=== PATIENT | male | born 1970 | race Caucasian/White ===

== ENCOUNTER 2017-05-16 08:07 | Inpatient (IN) | payer SELFPAY ==
[2017-05-16] VITALS (12 sets, daily range): BP systolic 135–174; BP diastolic 85–109; Ht 182.9 cm; Wt 80.7 kg
[~2017-05-16] VITALS: Ht 182.9 cm; Wt 80.7 kg
--- NOTE | 2017-05-16 08:08 | ER Report ---
History and Physical Time Seen By MD: 08:07 HPI/ROS CHIEF COMPLAINT: Nausea vomiting diarrhea and shortness of breath HISTORY OF PRESENT ILLNESS: Patient with complaint of flulike symptoms including body aches chest pain and shortness of breath also associated nausea vomiting and diarrhea. The symptoms have been present for approximately 24 hours. Patient is a type II diabetic and has been off his medications for the past 3 weeks because he has not gotten refills for his prescriptions. Patient just moved to [place] within the last month. He has not established care with a primary care provider. No documented fevers at home. REVIEW OF SYSTEMS: Constitutional: No fever, no chills. Eyes: No discharge. ENT: No sore throat. Cardiovascular: Chest pain Respiratory: Shortness of breath without cough Gastrointestinal: Diffuse abdominal pain associated with nausea vomiting and diarrhea. Genitourinary: No hematuria. Musculoskeletal: No back pain. Skin: No rashes. Neurological: Generalized headache Allergies: Coded Allergies: codeine (Verified Allergy, Unknown, 05/16/17) Home Meds Reported Medications Escitalopram Oxalate (ESCITALOPRAM OXALATE) 10 Mg Tablet, 15 MG PO QDAY, TAB 05/16/17 Clonazepam (CLONAZEPAM) 1 Mg Tablet, 1 MG PO PRN, #6 TAB 05/16/17 Amphet Asp/Amphet/D-Amphet (ADDERALL 20 MG TABLET) 20 Mg Tablet, 20 MG PO TID 05/16/17 Lisinopril (LISINOPRIL) 10 Mg Tablet, 10 MG PO QDAY, TAB 05/16/17 Past Medical/Surgical History Past medical history for type II diabetes. Constitutional Vital Sign - Last 24 Hours 05/16/17 08:10 Temp 97.8 Pulse 101 Resp 34 B/P (MAP) 193/124 Pulse Ox 97 O2 Delivery Room Air Intake and Output 05/16/17 05/16/17 05/17/17 15:00 23:00 07:00 Intake Total 1000 ml Balance 1000 ml Physical Exam General/Constitutional: Patient is awake, alert, a patient with rapid deep breathing; appears ill Head: Normocephalic and atraumatic. Eyes: Conjunctival clear, Pupils are equal and reactive to light. Extraocular muscles are intact and symmetrical. Sclera are clear and anicteric. Ears:External canals are clear. Tympanic membranes are clear with normal landmarks and light reflex. Nares: No rhinorrhea or bleeding. Turbinates are pink and moist. Oropharyngeal: Mucous membranes are dry. There is no pharyngeal erythema or exudate. There are no palatal petechiae. Uvula is midline and symmetrical. Neck: Supple, no adenopathy. Cardiovascular: Heart is regular rate and rhythm without audible murmurs, rubs or gallops. Pulmonary: Lungs are clear to auscultation bilaterally. There are no wheezes, rales, or rhonchi. Chest rise is symmetrical Abdomen: Diffuse abdominal pain without guarding or rebound tenderness Extremities: No gross deformities, No peripheral cyanosis. Able to move all 4 extremities. Neuro: Alert and oriented X3, Skin: No rashes, skin is warm dry and well perfused. Medical Decision Making Data Points Result Diagram: 05/16/17 0825 05/16/17 0825 Laboratory Hematology Test 05/16/17 08:25 05/16/17 09:15 05/16/17 09:46 05/16/17 10:28 Red Blood Count 4.87 M/uL (4.00-5.60) Mean Corpuscular Volume 101.3 fL (80.0-96.0) Mean Corpuscular Hemoglobin 33.1 pg (26.0-33.0) Mean Corpuscular Hemoglobin Concent 32.7 g/dL (32.0-36.0) Red Cell Distribution Width 14.7 % (11.5-14.5) Mean Platelet Volume 8.7 fL (7.2-11.1) Neutrophils (%) (Auto) 83.8 % (39.4-72.5) Lymphocytes (%) (Auto) 9.7 % (17.6-49.6) Monocytes (%) (Auto) 5.1 % (4.1-12.4) Eosinophils (%) (Auto) 0.0 % (0.4-6.7) Basophils (%) (Auto) 1.4 % (0.3-1.4) Nucleated RBC Relative Count (auto) 0.1 /100WBC Neutrophils # (Auto) 14.4 K/uL (2.0-7.4) Lymphocytes # (Auto) 1.7 K/uL (1.3-3.6) Monocytes # (Auto) 0.9 K/uL (0.3-1.0) Eosinophils # (Auto) 0.0 K/uL (0.0-0.5) Basophils # (Auto) 0.2 K/uL (0.0-0.1) Nucleated RBC Absolute Count (auto) 0.01 K/uL Peripheral Blood Smear Yes Y/N Blood Gas Patient Temperature 98.6 DEGREES Venous Blood pH 6.82 (7.31-7.41) Venous Blood Partial Pressure CO2 28 mmHg Venous Blood Partial Pressure O2 51 mmHg Venous Blood HCO3 5 mmol/L Venous Blood Oxygen Saturation 54 % Venous Blood Base Excess -30 mmol/L Oxygen Liters/Minute N/a Sodium Level 130 mmol/L (137-145) Potassium Level 4.8 mmol/L (3.5-5.0) Chloride Level 90 mmol/L (98-107) Carbon Dioxide Level < 5 mmol/L (22-30) Blood Urea Nitrogen 13 mg/dl (9-21) Creatinine 1.50 mg/dl (0.66-1.25) Glomerular Filtration Rate Calc 50.4 Random Glucose 455 mg/dl (75-110) Calcium Level 9.2 mg/dl (8.4-10.2) Total Bilirubin 0.7 mg/dl (0.2-1.3) Aspartate Amino Transf (AST/SGOT) 192 U/L (0-35) Alanine Aminotransferase (ALT/SGPT) 451 U/L (0-56) Alkaline Phosphatase 483 U/L (0-126) Troponin I 0.033 ng/ml Total Protein 9.3 gm/dl (6.3-8.2) Albumin 4.6 g/dl (3.5-5.0) Lipase 1354 U/L (23-300) Serum Alcohol 17 mg/dl Acetone, Qualitative Moderate Urine Color Yellow Urine Clarity Clear Urine pH 5.0 pH (4.8-9.5) Urine Specific [place] 1.022 Urine Protein 500 mg/dL (NEGATIVE) Urine Glucose (UA) 500 mg/dL (NEGATIVE) Urine Ketones 80 mg/dL (NEGATIVE) Urine Blood Moderate (NEGATIVE) Urine Nitrite Negative (NEGATIVE) Urine Bilirubin Negative (NEGATIVE) Urine Urobilinogen Negative mg/dL (0.2-1.9) Urine Leukocyte Esterase Negative (NEGATIVE) Urine RBC <1 /HPF (0-2/HPF) Urine WBC <1 /HPF (0-5/HPF) Urine Squamous Epithelial Cells Many /LPF (</=FEW) Urine Bacteria Negative /HPF (NONE-FEW) Urine Hyaline Casts Few /LPF (NONE-FEW) Urine Granular Casts Many /LPF (NONE) Urine Red Blood Cell Casts Few /LPF (NONE) Urine Mucus Few /HPF (NONE-FEW) Lactate 2.4 mmol/L (0.7-2.1) Whole Blood Glucose 453 mg/DL (75-110) Chemistry Test 05/16/17 08:25 05/16/17 09:15 05/16/17 09:46 05/16/17 10:28 White Blood Count 17.2 k/uL (4.5-11.0) Red Blood Count 4.87 M/uL (4.00-5.60) Hemoglobin 16.1 g/dL (14.0-18.0) Hematocrit 49.4 % (42.0-52.0) Mean Corpuscular Volume 101.3 fL (80.0-96.0) Mean Corpuscular Hemoglobin 33.1 pg (26.0-33.0) Mean Corpuscular Hemoglobin Concent 32.7 g/dL (32.0-36.0) Red Cell Distribution Width 14.7 % (11.5-14.5) Platelet Count 365 K/uL (150-450) Mean Platelet Volume 8.7 fL (7.2-11.1) Neutrophils (%) (Auto) 83.8 % (39.4-72.5) Lymphocytes (%) (Auto) 9.7 % (17.6-49.6) Monocytes (%) (Auto) 5.1 % (4.1-12.4) Eosinophils (%) (Auto) 0.0 % (0.4-6.7) Basophils (%) (Auto) 1.4 % (0.3-1.4) Nucleated RBC Relative Count (auto) 0.1 /100WBC Neutrophils # (Auto) 14.4 K/uL (2.0-7.4) Lymphocytes # (Auto) 1.7 K/uL (1.3-3.6) Monocytes # (Auto) 0.9 K/uL (0.3-1.0) Eosinophils # (Auto) 0.0 K/uL (0.0-0.5) Basophils # (Auto) 0.2 K/uL (0.0-0.1) Nucleated RBC Absolute Count (auto) 0.01 K/uL Peripheral Blood Smear Yes Y/N Blood Gas Patient Temperature 98.6 DEGREES Venous Blood pH 6.82 (7.31-7.41) Venous Blood Partial Pressure CO2 28 mmHg Venous Blood Partial Pressure O2 51 mmHg Venous Blood HCO3 5 mmol/L Venous Blood Oxygen Saturation 54 % Venous Blood Base Excess -30 mmol/L Oxygen Liters/Minute N/a Glomerular Filtration Rate Calc 50.4 Calcium Level 9.2 mg/dl (8.4-10.2) Total Bilirubin 0.7 mg/dl (0.2-1.3) Aspartate Amino Transf (AST/SGOT) 192 U/L (0-35) Alanine Aminotransferase (ALT/SGPT) 451 U/L (0-56) Alkaline Phosphatase 483 U/L (0-126) Troponin I 0.033 ng/ml Total Protein 9.3 gm/dl (6.3-8.2) Albumin 4.6 g/dl (3.5-5.0) Lipase 1354 U/L (23-300) Serum Alcohol 17 mg/dl Acetone, Qualitative Moderate Urine Color Yellow Urine Clarity Clear Urine pH 5.0 pH (4.8-9.5) Urine Specific [place] 1.022 Urine Protein 500 mg/dL (NEGATIVE) Urine Glucose (UA) 500 mg/dL (NEGATIVE) Urine Ketones 80 mg/dL (NEGATIVE) Urine Blood Moderate (NEGATIVE) Urine Nitrite Negative (NEGATIVE) Urine Bilirubin Negative (NEGATIVE) Urine Urobilinogen Negative mg/dL (0.2-1.9) Urine Leukocyte Esterase Negative (NEGATIVE) Urine RBC <1 /HPF (0-2/HPF) Urine WBC <1 /HPF (0-5/HPF) Urine Squamous Epithelial Cells Many /LPF (</=FEW) Urine Bacteria Negative /HPF (NONE-FEW) Urine Hyaline Casts Few /LPF (NONE-FEW) Urine Granular Casts Many /LPF (NONE) Urine Red Blood Cell Casts Few /LPF (NONE) Urine Mucus Few /HPF (NONE-FEW) Lactate 2.4 mmol/L (0.7-2.1) Whole Blood Glucose 453 mg/DL (75-110) Toxicology Test 05/16/17 08:25 Serum Alcohol 17 mg/dl Acetone, Qualitative Moderate Urinalysis Test 05/16/17 09:15 Urine Color Yellow Urine Clarity Clear Urine pH 5.0 pH (4.8-9.5) Urine Specific [place] 1.022 Urine Protein 500 mg/dL (NEGATIVE) Urine Glucose (UA) 500 mg/dL (NEGATIVE) Urine Ketones 80 mg/dL (NEGATIVE) Urine Blood Moderate (NEGATIVE) Urine Nitrite Negative (NEGATIVE) Urine Bilirubin Negative (NEGATIVE) Urine Urobilinogen Negative mg/dL (0.2-1.9) Urine Leukocyte Esterase Negative (NEGATIVE) Urine RBC <1 /HPF (0-2/HPF) Urine WBC <1 /HPF (0-5/HPF) Urine Squamous Epithelial Cells Many /LPF (</=FEW) Urine Bacteria Negative /HPF (NONE-FEW) Urine Hyaline Casts Few /LPF (NONE-FEW) Urine Granular Casts Many /LPF (NONE) Urine Red Blood Cell Casts Few /LPF (NONE) Urine Mucus Few /HPF (NONE-FEW) EKG/Imaging EKG Interpretation EKG shows normal sinus rhythm with ventricular rate of [address] segment abnormalities noted. Baseline is poor is likely secondary to tachypnea; will repeat assessment analyst Interpretation: Normal Sinus Rhythm Imaging FACILITY: [facility] [place] PATIENT NAME: Chris Quiroga : 1970 MR: [id number] V: [id number] EXAM DATE: ORDERING PHYSICIAN: HUNTER ROMAN TECHNOLOGIST: Location: [facility] Patient: Chris Quiroga : 1970 Visit/Account:[id number] Date of Sevice: 05/16/2017 ABDOMEN/PELVIS W/O CONTRAST HISTORY: Epigastric pain TECHNIQUE: CT abdomen and pelvis without intravenous contrast. One of the following dose optimization techniques was utilized in the performance of this exam: Automated exposure control; adjustment of the mA and/ or kV according to the patient's size; or use of an iterative reconstruction technique. Specific details can be referenced in the facility's radiology CT exam operational policy. CONTRAST: None. Please note, lack of IV contrast limits evaluation of solid organs. COMPARISON: None. FINDINGS: Visualized lung bases: Fluid within the esophagus raising the possibility of dysmotility and/or reflux. Otherwise negative. Hepatobiliary: Liver is enlarged measuring 19.7 cm at the midclavicular line. There is mild/moderate diffuse hepatic steatosis. Possible sludge within the gallbladder lumen. Otherwise negative. No findings to suggest acute cholecystitis. Spleen: Negative. Adrenals: Negative. Pancreas: There is mild peripancreatic inflammation surrounding the pancreatic head and body. There is mild thickening of the adjacent duodenal C-loop with mild surrounding inflammation. Kidneys/: Cortical atrophy involving the mid/superior pole of the left kidney. Otherwise negative. GI: Negative. Vessels/spaces/nodes: Small amount of retroperitoneal inflammation extending inferiorly from the pancreatic head. No visualized lymphadenopathy. Bones/soft tissues: Small fat-containing umbilical hernia. Mild multilevel degenerative changes of the visualized thoracal lumbar spine. Otherwise negative. IMPRESSION: 1. Peripancreatic inflammation, most compatible with pancreatitis. No gross complication identified on this unenhanced CT. There is no visualized pseudocyst. There is mild wall thickening and inflammation of the adjacent duodenal C-loop which is likely reactive. Cannot completely exclude duodenitis with reactive changes of the pancreas however felt unlikely. 2. Hepatomegaly with hepatic steatosis. 3. Additional incidental/chronic findings, as above. Report Dictated By: Ollie Amado MD at 05/16/2017 10:23 AM Report E-Signed By: Ollie Amado MD at 05/16/2017 10:27 AM WSN:[id number] ED Course/Re-evaluation Clinical Indication for ER IV: IV Access ED Course 05/16/2017 8:31:17 am Blood sugar over 400 plan at this time will be workup including CBC, comprehensive metabolic panel, troponin, chest x-ray and EKG. We'll give IV fluids, insulin and check venous blood gas. 05/16/2017 8:59:18 am patient is found to be in DKA with moderate serum acetone , blood sugar 4 55 mg/dL, bicarbonate of 5 and a venous pH of 6.8. Patient is receiving 1 L normal saline and received 10 units of regular insulin. We will continue IV hydration, we will start insulin drip at 1 unit per kilogram per hour. Monitor blood sugar hourly. I'll also monitor serum acetone. Patient remains with elevated serum acetone but blood sugar falls below 250 mg/dL we will change fluids to D5 normal saline. Lipase is also elevated at 1300 Decision to Disposition Date: May 16, 2017 Decision to Disposition Time: 11:08 Depart Departure Latest Vital Signs Vital Signs Date Time Temp Pulse Resp B/P (MAP) Pulse Ox O2 Delivery O2 Flow Rate FiO2 05/16/17 08:10 97.8 101 34 193/124 97 Room Air Impression: Primary Impression: Diabetic keto-acidosis Condition: Improved Disposition: Admitted from ER (to ICU under Dr Placido White) Problem Qualifiers Primary Impression: Diabetic keto-acidosis Diabetes mellitus type: other specified (including LINNETTE) Diabetes mellitus complication detail: without coma Qualified Codes: E13.10 - Other specified diabetes mellitus with ketoacidosis without coma HUNTER ROMAN MD May 16, 2017 08:08
[2017-05-16] MEDS ORDERED: NS(*) 0.9% 1000 ML BAG 1,000 ML IV ONE ×2 (08:10→09:15)
[2017-05-16] MEDS ORDERED: ONDANSETRON 4 MG/2 ML VIAL IVP ONE (08:10)
[2017-05-16] MEDS ORDERED: LORazepam 2 MG/ML VIAL IVP ONE (08:25)
[2017-05-16] MEDS ORDERED: INSU HUM REG 100 U/ML(ER ONLY) 10 ML VIAL IVP ONE (08:35)
[2017-05-16 08:39] LABS: PLATELET COUNT, AUTOMATED 365 K/uL (150-450)
[2017-05-16] MEDS ORDERED: INS HUM REG* 100 U/ML(ER ONLY) 100 UNIT in NS(*) 0.9% 100 ML BAG 99 ML IV SCH ×2 (09:00→13:04)
--- NOTE | 2017-05-16 09:06 | RADIOLOGY IMAGING REPORT ---
FACILITY: [facility] PATIENT NAME: Chris Quiroga : 1970 MR: [id number] V: [id number] EXAM DATE: ORDERING PHYSICIAN: HUNTER ROMAN TECHNOLOGIST: Location: [facility] Patient: Chris Quiroga : 1970 Visit/Account:[id number] Date of Sevice: 05/16/2017 2 VIEWS CHEST INDICATION: Pain COMPARISON: None available FINDINGS: Heart size within normal limits. There is no focal infiltrate or lobar consolidation. There is no pneumothorax or pleural effusion. Degenerative changes within the thoracic spine. IMPRESSION: 1. No acute cardiopulmonary process. Report Dictated By: Ollie Amado MD at 05/16/2017 9:01 AM Report E-Signed By: Ollie Amado MD at 05/16/2017 9:02 AM WSN:[id number]
[2017-05-16] MEDS ORDERED: ESCI10TA8 PO (10:21)
[2017-05-16] MEDS ORDERED: CLON-303 PO (10:21)
[2017-05-16] MEDS ORDERED: LISI-362 PO (10:21)
[2017-05-16] MEDS ORDERED: AMPH20TA18 PO (10:21)
--- NOTE | 2017-05-16 10:32 | RADIOLOGY IMAGING REPORT ---
FACILITY: [facility] PATIENT NAME: Chris Quiroga : 1970 MR: [id number] V: [id number] EXAM DATE: ORDERING PHYSICIAN: HUNTER ROMAN TECHNOLOGIST: Location: [facility] Patient: Chris Quiroga : 1970 Visit/Account:[id number] Date of Sevice: 05/16/2017 ABDOMEN/PELVIS W/O CONTRAST HISTORY: Epigastric pain TECHNIQUE: CT abdomen and pelvis without intravenous contrast. One of the following dose optimization techniques was utilized in the performance of this exam: Autom ated exposure control; adjustment of the mA and/or kV according to the patient's size; or use of an i terative reconstruction technique. Specific details can be referenced in the facility's radiology C T exam operational policy. CONTRAST: None. Please note, lack of IV contrast limits evaluation of solid organs. COMPARISON: None. FINDINGS: Visualized lung bases: Fluid within the esophagus raising the possibility of dysmotility and/or reflu x. Otherwise negative. Hepatobiliary: Liver is enlarged measuring 19.7 cm at the midclavicular line. There is mild/moderate diffuse hepatic steatosis. Possible sludge within the gallbladder lumen. Otherwise negative. No find ings to suggest acute cholecystitis. Spleen: Negative. Adrenals: Negative. Pancreas: There is mild peripancreatic inflammation surrounding the pancreatic head and body. There is mild thickening of the adjacent duodenal C-loop with mild surrounding inflammation. Kidneys/: Cortical atrophy involving the mid/superior pole of the left kidney. Otherwise negative. GI: Negative. Vessels/spaces/nodes: Small amount of retroperitoneal inflammation extending inferiorly from the parker creatic head. No visualized lymphadenopathy. Bones/soft tissues: Small fat-containing umbilical hernia. Mild multilevel degenerative changes of t he visualized thoracal lumbar spine. Otherwise negative. IMPRESSION: 1. Peripancreatic inflammation, most compatible with pancreatitis. No gross complication identified o n this unenhanced CT. There is no visualized pseudocyst. There is mild wall thickening and inflammati on of the adjacent duodenal C-loop which is likely reactive. Cannot completely exclude duodenitis wit h reactive changes of the pancreas however felt unlikely. 2. Hepatomegaly with hepatic steatosis. 3. Additional incidental/chronic findings, as above. Report Dictated By: Ollie Amado MD at 05/16/2017 10:23 AM Report E-Signed By: Ollie Amado MD at 05/16/2017 10:27 AM WSN:[id number]
[2017-05-16] MEDS ORDERED: LANI SUBQ (12:16)
[2017-05-16] MEDS ORDERED: METF-410 PO (12:25)
[2017-05-16] MEDS ORDERED: PANT40TA65 PO (12:25)
[2017-05-16] MEDS ORDERED: ATOR20TA65 PO (12:27)
[2017-05-16] MEDS ORDERED: PROMETHAZINE 25 MG/ML 1 ML AMP IVP PRN (13:15)
[2017-05-16] MEDS: THIAMINE HCL 200 MG/2 ML INJ IVP SCH (13:33)
[2017-05-16] MEDS: KCL/NS* 20 MEQ/1000 ML PREMIX 1,000 ML IV PRN ×4 (13:33→23:32)
--- NOTE | 2017-05-16 14:08 | History & Physical ---
History of Present Illness Chief Complaint "I feel terrible" History of Present Illness 47yo male with PMHx significant for diabetes mellitus. He reports onset of nausea, vomiting, diarrhea, muscle aches, generalized malaise, weakness over the past 2-3 days. He states he has not taken any of his usual medications which includes Lantus and metformin for his diabetes. He is also on Adderall, clonazepam, escitalopram. He has been having some diffuse abdominal discomfort "because is was throwing up". He additionally drinks one alcohol beverage on a daily basis. His BAL in the ER was 17. His family reports he has been drinking much more. He was evaluated in the ER and found to be significantly acidotic with positive ketones/moderate acetone and modestly elevated lactic acid. He also has an elevated lipase and CT scan consistent with an acute pancreatitis. He was recommended for admission. History Problems: (1) HTN (hypertension) Status: Chronic (2) Type 2 diabetes mellitus Status: Chronic (3) Depression Status: Chronic Home Meds Reported Medications Atorvastatin Calcium (ATORVASTATIN CALCIUM) 20 Mg Tablet, 1 TAB PO QDAY, TAB 05/16/17 Pantoprazole Sodium (PANTOPRAZOLE SODIUM) 40 Mg Tablet.dr, 40 MG PO QDAY, TAB.SR 05/16/17 Metformin Hcl (METFORMIN HCL) 500 Mg Tablet, 1 TAB PO BID, TAB 05/16/17 Insulin Glargine (LANTUS) 100 Unit/Ml Soln, 30 UNIT SUBQ QHS, ML 05/16/17 Escitalopram Oxalate (ESCITALOPRAM OXALATE) 10 Mg Tablet, 15 MG PO QDAY, TAB 05/16/17 Clonazepam (CLONAZEPAM) 1 Mg Tablet, 1 MG PO QID Y for ANXIETY, #6 TAB 05/16/17 Amphet Asp/Amphet/D-Amphet (ADDERALL 20 MG TABLET) 20 Mg Tablet, 20 MG PO TID 05/16/17 Lisinopril (LISINOPRIL) 10 Mg Tablet, 10 MG PO QDAY, TAB 05/16/17 Allergies: Coded Allergies: codeine (Verified Allergy, Intermediate, vomit, 05/16/17) Patient History: FH: hypertension FATHER MOTHER Other Social/Family Hx He is . 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 Hx Smoking: No Hx Alcohol Use: Yes (daily) Alcohol Used: Beer, Wine, Liquor Hx Substance Use Disorder: No Review of Systems Constitutional: No Fever, No Chills Neurological: Weakness Eyes: No Vision Change, No Loss of Vision ENT: No Hearing Loss Cardiovascular: No Chest Pain, No Palpitations Respiratory: Shortness of Breath Gastrointestinal: Nausea, Vomiting, Diarrhea, No Hematemesis, No Hematochezia, No Melena Genitourinary: No Dysuria, No Hematuria Psychiatric: Depression Exam Vital Signs Vital Signs Date Time Temp Pulse Resp B/P (MAP) Pulse Ox O2 Delivery O2 Flow Rate FiO2 05/16/17 12:39 99 Room Air 05/16/17 12:37 104 05/16/17 12:02 97.7 31 174/104 (127) General Appearance: Alert, Awake, Other ([place]ul respirations) Neuro: No Gross deficits Eyes: PERRLA ENT: Oropharynx Clear, Other (mucosa dry) Neck: No Masses Cardiovascular: Other (slightly tachycardic regular no murmur) Respiratory: Clear to Auscultation Chest: No Tenderness GI: Other (Fairly soft/no guarding/BS present) : No CVA Tenderness Extremities: Warm, Perfused Integumentary: Skin Intact without Lesion / Mass Psych: Alert & Oriented X3 Medical Decision Making Data Points Result Diagram: 05/16/17 0825 05/16/17 0825 Item Value Date Time Acetone, Qualitative Moderate 05/16/17 0825 Serum Alcohol 17 mg/dl 05/16/17 0825 Urine Mucus Few /HPF 05/16/17 0915 Urine Red Blood Cell Casts Few /LPF H 05/16/17 0915 Urine Granular Casts Many /LPF H 05/16/17 0915 Urine Hyaline Casts Few /LPF 05/16/17 0915 Urine Bacteria Negative /HPF 05/16/17 0915 Urine Squamous Epithelial Cells Many /LPF H 05/16/17 0915 Urine WBC <1 /HPF 05/16/17 0915 Urine RBC <1 /HPF 05/16/17 0915 Urine Leukocyte Esterase Negative 05/16/17 0915 Urine Urobilinogen Negative mg/dL 05/16/17 0915 Urine Bilirubin Negative 05/16/17 0915 Urine Nitrite Negative 05/16/17 0915 Urine Blood Moderate 05/16/17 0915 Urine Ketones 80 mg/dL H 05/16/17 0915 Urine Glucose (UA) 500 mg/dL 05/16/17 0915 Urine Protein 500 mg/dL 05/16/17 0915 Urine Specific [place] 1.022 05/16/17 0915 Urine pH 5.0 pH 05/16/17 0915 Urine Clarity Clear 05/16/17 0915 Urine Color Yellow 05/16/17 0915 Lactate 2.4 mmol/L H 05/16/17 0946 Lipase 1354 U/L H 05/16/17 0825 Albumin 4.6 g/dl 05/16/17 0825 Total Protein 9.3 gm/dl H 05/16/17 0825 Alkaline Phosphatase 483 U/L H 05/16/17 0825 Alanine Aminotransferase (ALT/SGPT) 451 U/L H 05/16/17 0825 Aspartate Amino Transf (AST/SGOT) 192 U/L H 05/16/17 0825 Total Bilirubin 0.7 mg/dl 05/16/17 0825 Calcium Level 9.2 mg/dl 05/16/17 0825 Random Glucose 455 mg/dl H 05/16/17 0825 Glomerular Filtration Rate Calc 50.4 05/16/17 0825 Creatinine 1.50 mg/dl H 05/16/17 0825 Blood Urea Nitrogen 13 mg/dl 05/16/17 0825 Carbon Dioxide Level < 5 mmol/L *L 05/16/17 0825 Chloride Level 90 mmol/L L 05/16/17 0825 Potassium Level 4.8 mmol/L 05/16/17 0825 Sodium Level 130 mmol/L L 05/16/17 0825 Troponin I 0.033 ng/ml 05/16/17 0825 Oxygen Liters/Minute N/a 05/16/17 0825 Venous Blood Base Excess -30 mmol/L 05/16/17 0825 Venous Blood Oxygen Saturation 54 % 05/16/17 0825 Venous Blood HCO3 5 mmol/L 05/16/17 0825 Venous Blood Partial Pressure O2 51 mmHg 05/16/17 0825 Venous Blood Partial Pressure CO2 28 mmHg 05/16/17 0825 Venous Blood pH 6.82 L 05/16/17 0825 Blood Gas Patient Temperature 98.6 DEGREES 05/16/17 0825 EKG / Imaging Imaging PATIENT NAME: Chris Quiroga : 1970 MR: [id number] V: [id number] EXAM DATE: ORDERING PHYSICIAN: HUNTER ROMAN TECHNOLOGIST: Location: [facility] [place] Patient: Chris Quiroga : 1970 Visit/Account:[id number] Date of Sevice: 05/16/2017 2 VIEWS CHEST INDICATION: Pain COMPARISON: None available FINDINGS: Heart size within normal limits. There is no focal infiltrate or lobar consolidation. There is no pneumothorax or pleural effusion. Degenerative changes within the thoracic spine. IMPRESSION: 1. No acute cardiopulmonary process. Report Dictated By: Ollie Amado MD at 05/16/2017 9:01 AM Report E-Signed By: Ollie Amado MD at 05/16/2017 9:02 AM [id number] PATIENT NAME: Chris Quiroga : 1970 MR: [id number] V: [id number] EXAM DATE: [id number] ORDERING PHYSICIAN: HUNTER ROMAN TECHNOLOGIST: Location: [facility] [place] Patient: Chris Quiroga : 1970 Visit/Account:[id number] Date of Sevice: 05/16/2017 ABDOMEN/PELVIS W/O CONTRAST HISTORY: Epigastric pain TECHNIQUE: CT abdomen and pelvis without intravenous contrast. One of the following dose optimization techniques was utilized in the performance of this exam: Automated exposure control; adjustment of the mA and/ or kV according to the patient's size; or use of an iterative reconstruction technique. Specific details can be referenced in the facility's radiology CT exam operational policy. CONTRAST: None. Please note, lack of IV contrast limits evaluation of solid organs. COMPARISON: None. FINDINGS: Visualized lung bases: Fluid within the esophagus raising the possibility of dysmotility and/or reflux. Otherwise negative. Hepatobiliary: Liver is enlarged measuring 19.7 cm at the midclavicular line. There is mild/moderate diffuse hepatic steatosis. Possible sludge within the gallbladder lumen. Otherwise negative. No findings to suggest acute cholecystitis. Spleen: Negative. Adrenals: Negative. Pancreas: There is mild peripancreatic inflammation surrounding the pancreatic head and body. There is mild thickening of the adjacent duodenal C-loop with mild surrounding inflammation. Kidneys/: Cortical atrophy involving the mid/superior pole of the left kidney. Otherwise negative. GI: Negative. Vessels/spaces/nodes: Small amount of retroperitoneal inflammation extending inferiorly from the pancreatic head. No visualized lymphadenopathy. Bones/soft tissues: Small fat-containing umbilical hernia. Mild multilevel degenerative changes of the visualized thoracal lumbar spine. Otherwise negative. IMPRESSION: 1. Peripancreatic inflammation, most compatible with pancreatitis. No gross complication identified on this unenhanced CT. There is no visualized pseudocyst. There is mild wall thickening and inflammation of the adjacent duodenal C-loop which is likely reactive. Cannot completely exclude duodenitis with reactive changes of the pancreas however felt unlikely. 2. Hepatomegaly with hepatic steatosis. 3. Additional incidental/chronic findings, as above. Report Dictated By: Ollie Amado MD at 05/16/2017 10:23 AM Report E-Signed By: Ollie Amado MD at 05/16/2017 10:27 AM [id number] Assessment and Plan Problems: (1) Diabetic keto-acidosis Status: Acute Assessment & Plan: He is profoundly acidotic. It appears he is probably not a type 2 diabetic, but most likely a type 1 insulin dependent diabetic. Will admit to the ICU for IV insulin, aggressive IV fluids, close monitoring of his glucoses and electrolytes. Will resume subcutaneous insulin once his acidosis is resolved and his is eating once again. (2) Acute pancreatitis Status: Acute Assessment & Plan: Most likely due to alcohol. It sounds as if he may have more significant intake than he admits. Will give thiamine supplementation. Watch on CIWA protocol and use Ativan IV as needed. Will probably need substance abuse counselor to see. (3) Alcohol use Status: Chronic Assessment & Plan: Most likely alcohol abuse. See above. Venous Thromboembolism Antithrombotics Is Pt On Any Antithrombotics?: Yes Exam Sepsis Risk: Severe Sepsis Risk Problem Qualifiers (1) Diabetic keto-acidosis: Diabetes mellitus type: other specified (including LINNETTE) Diabetes mellitus complication detail: without coma Qualified Codes: E13.10 - Other specified diabetes mellitus with ketoacidosis without coma SINAI AGUILERA MD May 16, 2017 14:08
--- NOTE | 2017-05-16 15:12 | Medical Nutrition Therapy ---
Nutrition Anthropometrics Height (Inches): 72.00 Height (Calculated Centimeters: 182.066169 Weight (Pounds): 179 Weight (Calculated Kilograms): 81.193 BMI Calculated: 24.27 Sabino Nutrition Score: Probably Inadequate Sabino Nutrition Risk Score: 20 Dietary Referral Nutrition Risk Factors: Nutrition Risk Comment: Physical Findings Physical Appearance: BMI 24.3 Skin Appearance Skin Appearance: Edema Edema Location Modifier: Edema Location: Type of Edema: Degree of Edema: Gastrointestinal Symptoms GI Symtoms: Tube Present: Bowel Sounds: Recent Bowel Pattern: Stool Characteristics: Nutritional Diagnosis Nutritional Risk Acuity 2: DKA Nutritional Risk Acuity 3: Alcohol abuse Past Medical History: T2DM, HTN, depression Nutritional Acuity: 2-Moderate Nutrition Diagnosis: Inappropriate Carb Intake Nutrition Etiology: Nutr. Knowledge Deficit Nutrition Problem/Etiology/Sym: Inappropriate carb intake related to nutrition knowledge deficit as evidenced by non-compliance with prescription refills and DKA Energy Requirement: 2300 ([id number]) Protein Requirement: 81 (1 g/kg) Fluid Requirement: 2025 (25 ml/kg) Diet Type: NPO (Nothing by Mouth) Nutrition Intervention: Incr diet as tolerated Nutrition Monitoring & Eval RD Patient Assessment Time: [address] Assessment Type: RD Assessment Patient Nutrition Acuity: 2-Moderate Follow Up Date: May 17, 2017 Nutritional Comment: 05/16 Pt admitted with N/V/D and SOB. PMH of T2DM and didn't refill prescriptions for lantus and metformin. Will be treated for DKA and may be T1DM. Also has hx of alcohol abuse and will be treated for acute pancreatitis. Notable labs include glc between 250-479, Na 130, creatinine 1.5, elevated liver enzymes, alk phos 483, total pro 9.3, lipase 1354. Currently NPO. Agree with vit B complex supplementation. Will evaluate readiness for nutrition education and encourage intake. ASHWIN PUENTE May 16, 2017 15:12
[2017-05-16] MEDS: LORazepam 2 MG/ML VIAL IVP PRN (15:20)
--- NOTE | 2017-05-16 16:50 | EKG ---
FACILITY: [facility] - [place], [place] PATIENT NAME: KRZYSZTOF BRODERICK : [id number] MR: [id number] V: [id number] EXAM DATE: ORDERING PHYSICIAN: HUNTER ROMAN TECHNOLOGIST: Test Reason : dka Blood Pressure : / mmHG Vent. Rate : 096 BPM Atrial Rate : 097 BPM P-R Int : 166 ms QRS Dur : 090 ms QT Int : 384 ms P-R-T Axes : 070 050 053 degrees QTc Int : 485 ms Sinus rhythm Poor R wave progression - question previous infarct Tall T waves precordial leads Abnormal ECG No previous ECGs available Confirmed by SINAI AGUILERA ([id number]) on 05/16/2017 6:29:30 PM Referred By: Confirmed By:SINAI AGUILERA
[2017-05-16] MEDS: MORPHINE 2 MG/ML SYR IVP PRN ×2 (18:09→21:33)
[2017-05-17] VITALS (16 sets, daily range): BP systolic 120–169; BP diastolic 81–105
[2017-05-17] MEDS: KCL/D1/2NS 20 MEQ 1000 ML 1,000 ML IV PRN ×3 (00:06→13:19)
[2017-05-17 05:29] LABS: PLATELET COUNT, AUTOMATED 160 K/uL (150-450)
[2017-05-17] MEDS: THIAMINE HCL 200 MG/2 ML INJ IVP SCH (09:29)
[2017-05-17] MEDS: ENOXAPARIN 40 MG/0.4ML SYR SC SCH (09:29)
--- NOTE | 2017-05-17 10:40 | Hospitalist Progress Note ---
Subjective Progress Notes Subjective He reports overall improvement and wants to eat. Physical Exam Vital Signs Date Time Temp Pulse Resp B/P (MAP) Pulse Ox O2 Delivery O2 Flow Rate FiO2 05/17/17 08:00 104 18 121/96 (104) 91 05/17/17 07:10 Room Air 05/17/17 07:00 98.8 Intake and Output 05/18/17 07:00 Intake Total 40 ml Output Total 1125 ml Balance -1085 ml Intake Oral 40 ml Output Urine Total 1125 ml General Appearance: Alert, Awake, No Acute Distress Cardiovascular: Other (Tachy, regular, no m/r/g) Respiratory: Clear to Auscultation GI: Soft and Non-Tender Result Diagram: 05/17/1752005/17/17520 Monitor Interpretation: Normal Sinus Rhythm Assessment and Plan Problems: (1) Diabetic keto-acidosis Status: Acute Assessment & Plan: He presented with vomiting and diarrhea for 24 hours. He has been off of Lantus/Metformin for about 3 weeks. It appears he is probably not a type 2 diabetic, but most likely a type 1 insulin dependent diabetic. His AG is improving. Glucose is stable. He is currently on D5 1/2 NS with the insulin drip. Will continue for now. BMP at noon. (2) Acute pancreatitis Status: Acute Assessment & Plan: Most likely due to alcohol. It sounds as if he may have more significant intake than he admits. Getting thiamine supplementation. On CIWA protocol and use Ativan IV as needed. Will probably need substance abuse counselor to see. Will recheck lipase/amylase this afternoon and might advance diet. Abdominal exam is benign, but CT showed peripancreatic stranding. (3) Alcohol use Status: Chronic Assessment & Plan: Most likely alcohol abuse. See above. Exam Sepsis Risk: No Definite Risk Problem Qualifiers (1) Diabetic keto-acidosis: Diabetes mellitus type: other specified (including LINNETTE) Diabetes mellitus complication detail: without coma Qualified Codes: E13.10 - Other specified diabetes mellitus with ketoacidosis without coma RERE CHUN MD May 17, 2017 10:40
[2017-05-17] MEDS ORDERED: SALINE 0.65% NAS SPR 44 ML BTL PRN (10:45)
[2017-05-17] MEDS ORDERED: INFLUENZA VIRUS VAC 0.5 ML SYR IM ONLY ONE (13:15)
[2017-05-17] MEDS ORDERED: NS 0.9% IV PRN (15:40)
[2017-05-17] MEDS ORDERED: INS HUM REG U IV PRN (15:40)
--- NOTE | 2017-05-17 15:50 | Medical Nutrition Therapy ---
Nutrition Anthropometrics Height (Inches): 72.00 Height (Calculated Centimeters: 182.000180 Weight (Pounds): 178 Weight (Calculated Kilograms): 80.739 BMI Calculated: 24.27 Sabino Nutrition Score: Probably Inadequate Sabino Nutrition Risk Score: 20 Dietary Referral Nutrition Risk Factors: Nutrition Risk Comment: Physical Findings Physical Appearance: BMI 24.3 Skin Appearance Skin Appearance: Edema Edema Location Modifier: Edema Location: Type of Edema: Degree of Edema: Gastrointestinal Symptoms GI Symtoms: Tube Present: Bowel Sounds: Recent Bowel Pattern: Stool Characteristics: Nutritional Diagnosis Nutritional Risk Acuity 2: DKA Nutritional Risk Acuity 3: Alcohol abuse Past Medical History: T2DM, HTN, depression Nutritional Acuity: 2-Moderate Nutrition Diagnosis: Inappropriate Carb Intake Nutrition Etiology: Nutr. Knowledge Deficit Nutrition Problem/Etiology/Sym: Inappropriate carb intake related to nutrition knowledge deficit as evidenced by non-compliance with prescription refills and DKA Energy Requirement: 2300 ([id number]) Protein Requirement: 81 (1 g/kg) Fluid Requirement: 2025 (25 ml/kg) Diet Type: NPO (Nothing by Mouth) Nutrition Intervention: Incr diet as tolerated Nutritional Education Nutrition Education Topic: Diabetic Nutrition Learning Readiness: Not Ready Teaching Methods: Handout Teaching Recipient: Patient Nutrition Monitoring & Eval RD Patient Assessment Time: [address] Assessment Type: RD Education Patient Nutrition Acuity: 2-Moderate Follow Up Date: May 18, 2017 Nutritional Comment: 05/16 Pt admitted with N/V/D and SOB. PMH of T2DM and didn't refill prescriptions for lantus and metformin. Will be treated for DKA and may be T1DM. Also has hx of alcohol abuse and will be treated for acute pancreatitis. Notable labs include glc between 250-479, Na 130, creatinine 1.5, elevated liver enzymes, alk phos 483, total pro 9.3, lipase 1354. Currently NPO. Agree with vit B complex supplementation. Will evaluate readiness for nutrition education and encourage intake. 05/17) Visited pt. for diabetes education. Stated he does "nothing" to control his BS, was dx with T2DM about 2 years ago and counted carbs for a while. 3-4 months ago his diabetes got worse and he started taking insulin but ran out and has not bought more due to financials and insurance. Reports eating no breakfast, lunch varies and usually has steak and salad for dinner. Labs: BG range 169-236, Mg 2.4, elvated liver enzymes, Na 131. A1C and C-peptide are in progress. Pt is NPO day 2. Will follow up tomorrow on labs, weight, and progression of diet. TOÑO KIM May 17, 2017 15:30
[2017-05-17] MEDS: KCL/NS* 20 MEQ/1000 ML PREMIX 1,000 ML IV PRN (19:55)
[2017-05-17] MEDS: LORazepam 2 MG/ML VIAL IVP PRN (19:57)
[2017-05-18] VITALS (12 sets, daily range): BP systolic 122–170; BP diastolic 85–109
[2017-05-18] MEDS: KCL/D1/2NS 20 MEQ 1000 ML 1,000 ML IV PRN ×4 (01:50→22:35)
[2017-05-18] MEDS: LORazepam 2 MG/ML VIAL IVP PRN ×3 (05:19→23:19)
[2017-05-18 05:34] LABS: PLATELET COUNT, AUTOMATED 147 K/uL (150-450)
[2017-05-18] MEDS: KCL (*) 20 MEQ/100 ML PREMIX 100 ML IV SCH ×2 (09:39→12:20)
[2017-05-18] MEDS: ESCITALOPRAM OXALATE 10 MG TAB PO SCH (09:39)
[2017-05-18] MEDS: LISINOPRIL 10 MG TAB PO SCH (09:39)
[2017-05-18] MEDS: PANTOPRAZOLE SOD 40 MG TABEC PO SCH (09:39)
[2017-05-18] MEDS: ENOXAPARIN 40 MG/0.4ML SYR SC SCH (09:40)
[2017-05-18] MEDS: THIAMINE HCL 200 MG/2 ML INJ IVP SCH (09:40)
--- NOTE | 2017-05-18 13:59 | Medical Nutrition Therapy ---
Nutrition Anthropometrics Height (Inches): 72.00 Height (Calculated Centimeters: 182.010923 Weight (Pounds): 178 Weight (Calculated Kilograms): 80.739 BMI Calculated: 24.27 Sabino Nutrition Score: Probably Inadequate Sabino Nutrition Risk Score: 20 Dietary Referral Nutrition Risk Factors: Nutrition Risk Comment: Physical Findings Physical Appearance: BMI 24.3 Skin Appearance Skin Appearance: Edema Edema Location Modifier: Edema Location: Type of Edema: Degree of Edema: Gastrointestinal Symptoms GI Symtoms: Tube Present: Bowel Sounds: Recent Bowel Pattern: Stool Characteristics: Nutrition/Food History Non-compliant W/Diet Good Alcohol Use: Currently Nutritional Diagnosis Nutritional Risk Acuity 2: DKA Nutritional Risk Acuity 3: Alcohol abuse Past Medical History: T2DM, HTN, depression Nutritional Acuity: 2-Moderate Nutrition Diagnosis: Inappropriate Carb Intake Nutrition Etiology: Nutr. Knowledge Deficit Nutrition Problem/Etiology/Sym: Inappropriate carb intake related to nutrition knowledge deficit as evidenced by non-compliance with prescription refills and DKA Energy Requirement: 2300 ([id number]) Protein Requirement: 81 (1 g/kg) Fluid Requirement: 2024 (25 ml/kg) Diet Type: NPO (Nothing by Mouth) Nutrition Intervention: Incr diet as tolerated Nutritional Education Nutrition Education Topic: Diabetic Nutrition Learning Barriers: Emotional, Hx Of Non-Compliance Learning Readiness: [place] Teaching Methods: Discussion, Handout Response to Teaching: Verbalize understanding, Reinforcement needed Teaching Recipient: Patient, Family Nutrition Monitoring & Eval Nutrition Goals: Eat 75-100% Meal RD Patient Assessment Time: [address] Assessment Type: RD Education Patient Nutrition Acuity: 2-Moderate Follow Up Date: May 18, 2017 Nutritional Comment: 05/16 Pt admitted with N/V/D and SOB. PMH of T2DM and didn't refill prescriptions for lantus and metformin. Will be treated for DKA and may be T1DM. Also has hx of alcohol abuse and will be treated for acute pancreatitis. Notable labs include glc between 250-479, Na 130, creatinine 1.5, elevated liver enzymes, alk phos 483, total pro 9.3, lipase 1354. Currently NPO. Agree with vit B complex supplementation. Will evaluate readiness for nutrition education and encourage intake. 05/17) Visited pt. for diabetes education. Stated he does "nothing" to control his BS, was dx with T2DM about 2 years ago and counted carbs for a while. 3-4 months ago his diabetes got worse and he started taking insulin but ran out and has not bought more due to financials and insurance. Reports eating no breakfast, lunch varies and usually has steak and salad for dinner. Labs: BG range 169-236, Mg 2.4, elvated liver enzymes, Na 131. A1C and C-peptide are in progress. Pt is NPO day 2. Will follow up tomorrow on labs, weight, and progression of diet. 05/18 Mother and pt instructed on basic diabetes nutrition. Explained concept of consistent, controlled carbohydrate intake using carb counting or plate method. Mother appears nervous and overwhelmed, states "I don't know how he will do this at work." Pt seems more relaxed, however, not sure if he is committed to changes. Pt did ask questions regarding foods, carbs, insulin, etc. Recommended outpt diabetes center to continue eduation. Will return to reinforce concepts and answer further questions. AURELIANO WILKERSON May 18, 2017 13:59
--- NOTE | 2017-05-18 15:44 | Hospitalist Progress Note ---
Subjective Progress Notes Subjective The patient denies pain. Physical Exam Vital Signs Date Time Temp Pulse Resp B/P (MAP) Pulse Ox O2 Delivery O2 Flow Rate FiO2 05/18/17 15:28 93 Room Air 05/18/17 15:05 93 05/18/17 15:04 98.1 18 149/99 (116) Intake and Output 05/19/17 07:00 Intake Total 1342 ml Balance 1342 ml Intake Oral 800 ml IV Total 542 ml # Voids 3 # Bowel Movements 2 General Appearance: Alert, Awake, No Acute Distress Neuro: No Gross deficits Cardiovascular: Regular Rate and Rhythm Respiratory: Clear to Auscultation GI: Soft and Non-Tender Extremities: Warm, Perfused Psych: Appropriate Mood & Affect Result Diagram: 05/18/1750905/18/17509 Item Value Date Time Lipase 617 U/L H 05/18/17509 Amylase Level 86 U/L 05/18/17509 Monitor Interpretation: Normal Sinus Rhythm Assessment and Plan Problems: (1) Diabetic keto-acidosis Status: Acute Assessment & Plan: He presented with vomiting and diarrhea for 24 hours. He has been off of Lantus/Metformin for about 3 weeks. It appears he is probably not a type 2 diabetic, but most likely a type 1 insulin dependent diabetic. His AG has closed Glucose is stable. He is currently on D5 1/2 NS with the insulin drip. Will start clear liquids today. (2) Acute pancreatitis Status: Acute Assessment & Plan: Most likely due to alcohol. It sounds as if he may have more significant intake than he admits. Getting thiamine supplementation. On CIWA protocol and use Ativan IV as needed. Will probably need substance abuse counselor to see. Will recheck lipase/amylase this afternoon and might advance diet. Abdominal exam is benign, but CT showed peripancreatic stranding. (3) Alcohol use Status: Chronic Assessment & Plan: Most likely alcohol abuse. See above. Time Spent on Plan of Care: < 30 min Exam Sepsis Risk: No Definite Risk Problem Qualifiers (1) Diabetic keto-acidosis: Diabetes mellitus type: other specified (including LINNETTE) Diabetes mellitus complication detail: without coma Qualified Codes: E13.10 - Other specified diabetes mellitus with ketoacidosis without coma AMMON AGUILERA MD May 18, 2017 15:44
[2017-05-18] MEDS ORDERED: NS 0.9% IV SCH (17:15)
[2017-05-18] MEDS ORDERED: INS HUM REG U IV SCH (17:15)
[2017-05-19] VITALS (7 sets, daily range): BP systolic 122–155; BP diastolic 77–110
[2017-05-19] MEDS: KCL/D1/2NS 20 MEQ 1000 ML 1,000 ML IV PRN (04:58)
[2017-05-19 05:22] LABS: INR 0.99
[2017-05-19 05:23] LABS: PLATELET COUNT, AUTOMATED 156 K/uL (150-450)
--- NOTE | 2017-05-19 07:24 | Medical Nutrition Therapy ---
Nutrition Anthropometrics Height (Inches): 72.00 Height (Calculated Centimeters: 182.295279 Weight (Pounds): 178 Weight (Calculated Kilograms): 80.739 BMI Calculated: 24.27 Sabino Nutrition Score: Probably Inadequate Sabino Nutrition Risk Score: 20 Dietary Referral Nutrition Risk Factors: Nutrition Risk Comment: Physical Findings Physical Appearance: BMI 24.3 Skin Appearance Skin Appearance: Edema Edema Location Modifier: Edema Location: Type of Edema: Degree of Edema: Gastrointestinal Symptoms GI Symtoms: Tube Present: Bowel Sounds: Recent Bowel Pattern: Stool Characteristics: Nutritional Diagnosis Nutritional Risk Acuity 2: DKA Nutritional Risk Acuity 3: Alcohol abuse Past Medical History: T2DM, HTN, depression Nutritional Acuity: 2-Moderate Nutrition Diagnosis: Inappropriate Carb Intake Nutrition Etiology: Nutr. Knowledge Deficit Nutrition Problem/Etiology/Sym: Inappropriate carb intake related to nutrition knowledge deficit as evidenced by non-compliance with prescription refills and DKA Energy Requirement: 2300 ([id number]) Protein Requirement: 81 (1 g/kg) Fluid Requirement: 2025 (25 ml/kg) Diet Type: Clear Liquids Nutrition Intervention: Cont diet as ordered, Incr diet as tolerated Nutrition Monitoring & Eval Nutrition Goals: Eat 50-100% Meal RD Patient Assessment Time: [address] Assessment Type: RD Re-Assessment Patient Nutrition Acuity: 2-Moderate Follow Up Date: May 19, 2017 Nutritional Comment: 05/16 Pt admitted with N/V/D and SOB. PMH of T2DM and didn't refill prescriptions for lantus and metformin. Will be treated for DKA and may be T1DM. Also has hx of alcohol abuse and will be treated for acute pancreatitis. Notable labs include glc between 250-479, Na 130, creatinine 1.5, elevated liver enzymes, alk phos 483, total pro 9.3, lipase 1354. Currently NPO. Agree with vit B complex supplementation. Will evaluate readiness for nutrition education and encourage intake. 05/17) Visited pt. for diabetes education. Stated he does "nothing" to control his BS, was dx with T2DM about 2 years ago and counted carbs for a while. 3-4 months ago his diabetes got worse and he started taking insulin but ran out and has not bought more due to financials and insurance. Reports eating no breakfast, lunch varies and usually has steak and salad for dinner. Labs: BG range 169-236, Mg 2.4, elvated liver enzymes, Na 131. A1C and C-peptide are in progress. Pt is NPO day 2. Will follow up tomorrow on labs, weight, and progression of diet. 05/18 Mother and pt instructed on basic diabetes nutrition. Explained concept of consistent, controlled carbohydrate intake using carb counting or plate method. Mother appears nervous and overwhelmed, states "I don't know how he will do this at work." Pt seems more relaxed, however, not sure if he is committed to changes. Pt did ask questions regarding foods, carbs, insulin, etc. Recommended outpt diabetes center to continue eduation. Will return to reinforce concepts and answer further questions. 05/18)Pt has been moved to [facility], no po intake at this time. Labs: BS range 207-121, lipase 617, Alb 3.3, A1C 11.1, C-peptide is pending. Will continue to monitor labs, po tolerance and intake, weight and follow up with more diabetes education if needed. TOÑO KIM May 18, 2017 15:22
[2017-05-19] MEDS: THIAMINE HCL 100 MG TAB PO SCH (08:32)
[2017-05-19] MEDS: ENOXAPARIN 40 MG/0.4ML SYR SC SCH (08:32)
[2017-05-19] MEDS: ESCITALOPRAM OXALATE 10 MG TAB PO SCH (08:32)
[2017-05-19] MEDS: KCL (*) 20 MEQ/100 ML PREMIX 100 ML IV SCH ×2 (08:33→10:51)
[2017-05-19] MEDS: NS(*) 0.9% 500 ML BAG 500 ML IV PRN ×2 (08:33→12:49)
[2017-05-19] MEDS: LISINOPRIL 10 MG TAB PO SCH (08:33)
[2017-05-19] MEDS: PANTOPRAZOLE SOD 40 MG TABEC PO SCH (08:33)
[2017-05-19] MEDS: INSULIN GLARGINE 100 U/ML 3 ML PEN SUBQ SCH (08:34)
--- NOTE | 2017-05-19 10:23 | Hospitalist Progress Note ---
Subjective Progress Notes Subjective He reports doing well. No abdominal pain. No N/V. Physical Exam Vital Signs Date Time Temp Pulse Resp B/P (MAP) Pulse Ox O2 Delivery O2 Flow Rate FiO2 05/19/17 10:00 97 17 91 Room Air 05/19/17 08:17 98.6 152/110 (124) Intake and Output 05/20/17 07:00 Intake Total 316.7 ml Balance 316.7 ml IV Total 316.7 ml General Appearance: Alert, Awake Cardiovascular: Regular Rate and Rhythm GI: Soft and Non-Tender (BS present) Extremities: Warm, Perfused Result Diagram: 05/19/17 0502 05/19/17 0502 Monitor Interpretation: Normal Sinus Rhythm Assessment and Plan Problems: (1) Diabetic keto-acidosis Status: Acute Assessment & Plan: He presented with vomiting and diarrhea for 24 hours. He has been off of Lantus/Metformin for about 3 weeks. It appears he is probably not a type 2 diabetic, but most likely a type 1 insulin dependent diabetic. His C-peptide is 0.2, which would be consistent with type 1 DM. His AG has closed Glucose is stable. He has tolerated clear liquids. Will advance to low fat ADA diet today. Will transition from IV insulin to Lantus 25 units SQ AM and Humalog with meals. Watch glucoses and modify regimen as needed (2) Acute pancreatitis Status: Acute Assessment & Plan: Most likely due to alcohol. It sounds as if he may have more significant intake than he admits. Getting thiamine supplementation. On CIWA protocol and use Ativan IV as needed. We discussed seeing substance abuse counselor and he declined at this time. I did stress the need to remain abstinent and he reports understanding. Will advance diet. Monitor labs. (3) Alcohol use Status: Chronic Assessment & Plan: Most likely alcohol abuse. See above. (4) Hypokalemia Status: Acute Assessment & Plan: Will replace with IV fluids. Watch labs. Exam Sepsis Risk: No Definite Risk Problem Qualifiers (1) Diabetic keto-acidosis: Diabetes mellitus type: other specified (including LINNETTE) Diabetes mellitus complication detail: without coma Qualified Codes: E13.10 - Other specified diabetes mellitus with ketoacidosis without coma SINAI AGUILERA MD May 19, 2017 10:23
[2017-05-19] MEDS: INSULIN HUM LISPRO 100 UN/ML 3 ML VIAL SUBQ SCH ×2 (11:49→16:39)
[2017-05-19] MEDS: INSULIN HUM LISPRO 100 UN/ML 3 ML VIAL SUBQ PRN ×3 (11:49→21:04)
--- NOTE | 2017-05-19 13:31 | Medical Nutrition Therapy ---
Nutrition Anthropometrics Height (Inches): 72.00 Height (Calculated Centimeters: 182.543857 Weight (Pounds): 178 Weight (Calculated Kilograms): 80.739 BMI Calculated: 24.27 Sabino Nutrition Score: Probably Inadequate Sabino Nutrition Risk Score: 20 Dietary Referral Nutrition Risk Factors: Nutrition Risk Comment: Physical Findings Physical Appearance: BMI 24.3 Skin Appearance Skin Appearance: Edema Edema Location Modifier: Edema Location: Type of Edema: Degree of Edema: Gastrointestinal Symptoms GI Symtoms: Tube Present: Bowel Sounds: Recent Bowel Pattern: Stool Characteristics: Nutritional Diagnosis Nutritional Risk Acuity 2: DKA Nutritional Risk Acuity 3: Alcohol abuse Past Medical History: T2DM, HTN, depression Nutritional Acuity: 2-Moderate Nutrition Diagnosis: Inappropriate Carb Intake Nutrition Etiology: Nutr. Knowledge Deficit Nutrition Problem/Etiology/Sym: Inappropriate carb intake related to nutrition knowledge deficit as evidenced by non-compliance with prescription refills and DKA Energy Requirement: 2300 ([id number]) Protein Requirement: 81 (1 g/kg) Fluid Requirement: 2025 (25 ml/kg) Diet Type: Diabetic, Low Fat Nutrition Intervention: Cont diet as ordered, Encourage intake Nutritional Education Nutrition Education Topic: Diabetic Nutrition, Other (Low fat) Learning Readiness: Little [place] Teaching Methods: Discussion Response to Teaching: Verbalize understanding Teaching Recipient: Patient Nutrition Counseling: Assisted pt. will breakfast selection and carb counting. Nutrition Monitoring & Eval Nutrition Goals: Eat 50-100% Meal RD Patient Assessment Time: [address] Assessment Type: RD Re-Assessment Patient Nutrition Acuity: 2-Moderate Follow Up Date: May 21, 2017 Nutritional Comment: 05/16 Pt admitted with N/V/D and SOB. PMH of T2DM and didn't refill prescriptions for lantus and metformin. Will be treated for DKA and may be T1DM. Also has hx of alcohol abuse and will be treated for acute pancreatitis. Notable labs include glc between 250-479, Na 130, creatinine 1.5, elevated liver enzymes, alk phos 483, total pro 9.3, lipase 1354. Currently NPO. Agree with vit B complex supplementation. Will evaluate readiness for nutrition education and encourage intake. 05/17) Visited pt. for diabetes education. Stated he does "nothing" to control his BS, was dx with T2DM about 2 years ago and counted carbs for a while. 3-4 months ago his diabetes got worse and he started taking insulin but ran out and has not bought more due to financials and insurance. Reports eating no breakfast, lunch varies and usually has steak and salad for dinner. Labs: BG range 169-236, Mg 2.4, elvated liver enzymes, Na 131. A1C and C-peptide are in progress. Pt is NPO day 2. Will follow up tomorrow on labs, weight, and progression of diet. 05/18 Mother and pt instructed on basic diabetes nutrition. Explained concept of consistent, controlled carbohydrate intake using carb counting or plate method. Mother appears nervous and overwhelmed, states "I don't know how he will do this at work." Pt seems more relaxed, however, not sure if he is committed to changes. Pt did ask questions regarding foods, carbs, insulin, etc. Recommended outpt diabetes center to continue eduation. Will return to reinforce concepts and answer further questions. 05/18)Pt has been moved to [facility], no po intake at this time. Labs: BS range 207-121, lipase 617, Alb 3.3, A1C 11.1, C-peptide is pending. Will continue to monitor labs, po tolerance and intake, weight and follow up with more diabetes education if needed. 05/19) Pt. tolerated clears. Moving to Med Floor today. Labs: Na 133, K 3.1, Glu 152, liver enzymes remain elevated, Alk phos 240, Alb 3.0, C-peptide 0.2 which is indicative of T1DM, A1C 11.1. Pt. will be on low-fat, diabetic diet, no current po intake. Will monitor po intake,labs, weight, diet tolerance. TOÑO KIM May 19, 2017 11:13
[2017-05-20 05:35] LABS: PLATELET COUNT, AUTOMATED 189 K/uL (150-450)
[2017-05-20] MEDS: INSULIN HUM LISPRO 100 UN/ML 3 ML VIAL SUBQ PRN ×2 (05:54→08:33)
[2017-05-20 05:58] VITALS: BP 134/90
[2017-05-20 07:30] VITALS: BP 148/94
[2017-05-20] MEDS ORDERED: clonazePAM 1 MG TAB PO PRN (07:55)
[2017-05-20] MEDS: ENOXAPARIN 40 MG/0.4ML SYR SC SCH (08:31)
[2017-05-20] MEDS: THIAMINE HCL 100 MG TAB PO SCH (08:32)
[2017-05-20] MEDS: LISINOPRIL 10 MG TAB PO SCH (08:32)
[2017-05-20] MEDS: INSULIN GLARGINE 100 U/ML 3 ML PEN SUBQ SCH (08:32)
[2017-05-20] MEDS: PANTOPRAZOLE SOD 40 MG TABEC PO SCH (08:32)
[2017-05-20] MEDS: ESCITALOPRAM OXALATE 10 MG TAB PO SCH (08:32)
[2017-05-20] MEDS: INSULIN HUM LISPRO 100 UN/ML 3 ML VIAL SUBQ SCH (08:33)
[2017-05-20] MEDS ORDERED: DEXTROAMPHETAMINE/AMPHETAMINE 20 MG TABLET PO SCH (09:00)
[2017-05-20] MEDS ORDERED: INSU100I28 SQ (10:53)
[2017-05-20] MEDS ORDERED: CLON-303 PO (10:53)
[2017-05-20] MEDS ORDERED: LANC-165 (10:53)
[2017-05-20] MEDS ORDERED: BLOO-1511 SQ (10:53)
[2017-05-20] MEDS ORDERED: ESCI10TA8 PO (10:53)
[2017-05-20] MEDS ORDERED: NEED-498 MC (10:53)
[2017-05-20] MEDS ORDERED: INSU100I30 SQ (10:53)
[2017-05-20] MEDS ORDERED: LISI-362 PO (10:53)
--- NOTE | 2017-05-20 10:58 | Hospitalist Depart ---
Discharge Summary Reason for Hosp/Final Diag: (1) Diabetic keto-acidosis Status: Acute Hospital Course & Plan: He did present with nausea and vomiting. His labs were consistent with diabetic ketoacidosis. He was started on IV insulin and IV fluid resuscitation. His acidosis resolved and he was converted to SQ insulin. He will discharge on Lantus and mealtime Humalog. He was also provided diabetic education and testing supplies. (2) Acute pancreatitis Status: Acute Hospital Course & Plan: He was found to have an elevated lipase and CT findings consistent with pancreatitis. He was NPO, but has now advanced to a full diabetic diet. (3) Alcohol use Status: Chronic Hospital Course & Plan: He was placed on CIWA protocol. He did require intermittent dosing with lorazepam. He also received thiamine supplements. He denied alcohol counseling. (4) Hypokalemia Status: Acute Hospital Course & Plan: Resolved with supplementation. Departure Latest Vital Signs Vital Signs Weight (Pounds): 178 Result Diagram: 05/20/17 0503 05/20/17 0503 Condition: Improved Discharge: Home, Self Care Follow-Up Labs: Finger Sticks Discharge Instructions Home Meds Active Scripts Blood Sugar Diagnostic (GLUCOSE TEST STRIP) 1 Each Strip, 1 STRIP SQ ACHS, #100 STRIP Prov:ELIANE WEISS DO 05/20/17 [place], Insulin Disposable (INSULIN PEN NEEDLE) 1 Each Dis.needle, EACH MC, # 100 Prov:ELIANE WEISS DO 05/20/17 Lancets (Blood Lancets) 30 Gauge Each, STRIP ACHS, #100 Prov:ELIANE WEISS DO 05/20/17 Insulin Glargine,Hum.rec.anlog (LANTUS SOLOSTAR) 100 Unit/1 Ml Insuln.pen, 25 UNIT SQ QDAY, #3 ML Prov:ELIANE WEISS DO 05/20/17 Insulin Lispro 3 Ml Prefilled (HUMALOG 3 ML PEN) 100 Unit/1 Ml Insuln.pen, 7 UNIT SQ TIDAC, #3 ML Prov:ELIANE WEISS DO 05/20/17 Escitalopram Oxalate (ESCITALOPRAM OXALATE) 10 Mg Tablet, 15 MG PO QDAY, #30 TAB Prov:ELIANE WEISS DO 05/20/17 Clonazepam (CLONAZEPAM) 1 Mg Tablet, 1 MG PO QID Y for ANXIETY, #10 TAB Prov:ELIANE WEISS DO 05/20/17 Lisinopril (LISINOPRIL) 10 Mg Tablet, 10 MG PO QDAY, #30 TAB Prov:ELIANE WEISS DO 05/20/17 Reported Medications Atorvastatin Calcium (ATORVASTATIN CALCIUM) 20 Mg Tablet, 1 TAB PO QDAY, TAB 05/16/17 Discontinued Reported Medications Pantoprazole Sodium (PANTOPRAZOLE SODIUM) 40 Mg Tablet.dr, 40 MG PO QDAY, TAB.SR 05/16/17 Metformin Hcl (METFORMIN HCL) 500 Mg Tablet, 1 TAB PO BID, TAB 05/16/17 Insulin Glargine (LANTUS) 100 Unit/Ml Soln, 30 UNIT SUBQ QHS, ML 05/16/17 Amphet Asp/Amphet/D-Amphet (ADDERALL 20 MG TABLET) 20 Mg Tablet, 20 MG PO TID 05/16/17 Diet: Diabetic Activity: As Tolerated Venous Thromboembolism Antithrombotics Is Pt On Any Antithrombotics?: Yes Problem Qualifiers (1) Diabetic keto-acidosis: Diabetes mellitus type: other specified (including LINNETTE) Diabetes mellitus complication detail: without coma Qualified Codes: E13.10 - Other specified diabetes mellitus with ketoacidosis without coma ELIANE WEISS DO May 20, 2017 10:58
== END 2017-05-20 12:00 | disposition home or self-care (01) | DRG 637 ==
LOC: ER 08:20 → UNDOADMIN 11:09 → ICU 11:09
PROVIDERS: ADMIT Internal Medicine; ATTEND Internal Medicine
DX: E10.10 Type 1 diabetes mellitus with ketoacidosis without coma (principal); K85.20 Alcohol induced acute pancreatitis without necrosis or infection; I10 Essential (primary) hypertension; F32.9 Major depressive disorder, single episode, unspecified; F10.10 Alcohol abuse, uncomplicated; Y90.0 Blood alcohol level of less than 20 mg/100 ml; E87.6 Hypokalemia; F90.9 Attention-deficit hyperactivity disorder, unspecified type; F41.9 Anxiety disorder, unspecified; Z88.6 Allergy status to analgesic agent; Z79.4 Long term (current) use of insulin; Z79.84 Long term (current) use of oral hypoglycemic drugs; Z91.14 Patient's other noncompliance with medication regimen
CPT/HCPCS: 36415; 36416; 71046; 74176; 80320; 81001; 82009; 82040; 82150; 82247; 82310; 82374; 82435; 82565; 82803; 82947; 82948; 83036; 83605; 83690; 83735; 84075; 84132; 84155; 84295; 84443; 84450; 84460; 84484; 84520; 84681; 85025; 85610; 93005; 96361; 96365; 96366; 96375; 99285; J1650; J1815; J2060; J2270; J2405; J3411; J3480; J7030; J7040; J7050

== ENCOUNTER 2017-05-18 13:54 | Outpatient (RCR) | payer SELFPAY ==
[2017-05-16 14:59] VITALS: BMI 24.3
[~2017-05-18 13:54] MED LIST: AMPH20TA18 PO; ATOR20TA65 PO; CLON-303 PO; ESCI10TA8 PO; LANI SUBQ; LISI-362 PO; METF-410 PO; PANT40TA65 PO
[2017-05-20] MEDS ORDERED: BLOO-1511 SQ (10:53)
[2017-05-20] MEDS ORDERED: LANC-165 (10:53)
[2017-05-20] MEDS ORDERED: INSU100I28 SQ (10:53)
[2017-05-20] MEDS ORDERED: LISI-362 PO (10:53)
[2017-05-20] MEDS ORDERED: NEED-498 MC (10:53)
[2017-05-20] MEDS ORDERED: ESCI10TA8 PO (10:53)
[2017-05-20] MEDS ORDERED: INSU100I30 SQ (10:53)
[2017-05-20] MEDS ORDERED: CLON-303 PO (10:53)
--- NOTE | 2017-05-21 14:29 | Transitional Care Management ---
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 He has no phone number at this time. No insurance--Someone brought him some forms to fill out for hospital assistance with finances. Suggested the DTC until he can establish a PCP and follow up care. He states his insurance at the [facility] will take effect on May 20. He did agree to pone calls once he got a luna, will be at work most of all days and wouldn't consent to home visit. /2 Unable to contact LANCE DONIS May 21, 2017 14:29
--- NOTE | 2017-05-22 14:28 | Transitional Care Management ---
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 He has no phone number at this time. No insurance--Someone brought him some forms to fill out for hospital assistance with finances. Suggested the DTC until he can establish a PCP and follow up care. He states his insurance at the [facility] will take effect on May 20. He did agree to pone calls once he got a luna, will be at work most of all days and wouldn't consent to home visit. 3/2 Unable to contact 3/3 Goes straight to [employer] [facility], which is not set up. LANCE DONIS May 22, 2017 14:28
--- NOTE | 2017-05-24 14:31 | Transitional Care Management ---
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 He has no phone number at this time. No insurance--Someone brought him some forms to fill out for hospital assistance with finances. Suggested the DTC until he can establish a PCP and follow up care. He states his insurance at the [facility] will take effect on May 20. He did agree to pone calls once he got a luna, will be at work most of all days and wouldn't consent to home visit. 05/21 Unable to contact 05/22 Goes straight to [employer], which is not set up 05/24 unable to contact-phone goes to - not setup GIRISH HORN May 24, 2017 14:31
--- NOTE | 2017-05-25 14:09 | Transitional Care Management ---
Assessment Visit Type: Telephone Visit (05/25 Jose R) Cardiac: WNL Respiratory: WNL GI: Nutrition: WNL Except GI Comment: 05/25 working very hard on obtaining and staying on a diabetic diet. 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 Socialization Comment: 05/25 working alot as I was sick for 8 days and need to catch up but feeling better Pain/Management: WNL Scheduled Follow-Up with Provi: No (05/25 No, but I will-just got my personal phone and will call Dr durant this week) TCM Discharge Criteria Medication Knowledge: 05/25 Went over BS and use of insulin-states he went and got a different glucometer and has been taking BS 4x qd "they have been ok so far. 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 He has no phone number at this time. No insurance--Someone brought him some forms to fill out for hospital assistance with finances. Suggested the [facility] until he can establish a PCP and follow up care. He states his insurance at the [facility] will take effect on May 20. He did agree to pone calls once he got a luna, will be at work most of all days and wouldn't consent to home visit. 3/ Unable to contact 3/ Goes straight to [facility], which is not set up 05/24 unable to contact-phone goes to - not setup 05/25 TT to Jose R he stated he had gone to [facility] but dt the fact that he will be making to much money he could not be seen. He is going to call Dr Harper office this week and try and get in. "I have been very busy with moving, getting a phone and trying to catch up at work." Enc him to take some rest time or he will get sick again. His immune system is low and he needs to try and stay away from ill people. Jose R states he will try to take care of himself as he does not to return to hospital" "Everything was good, I just don't to be in hospital again" stated he would get a script from PCP to go to the diabetic out patient clinic ad I know I have to do all I can to beat this. Denies any drinking. Copies to: ELIANE HARPER MD, JOAN May 25, 2017 14:09
--- NOTE | 2017-06-02 12:27 | Transitional Care Management ---
Assessment Cardiac: WNL Respiratory: WNL GI: Nutrition: WNL Except GI Comment: 05/25 working very hard on obtaining and staying on a diabetic diet. 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 Socialization Comment: 05/25 working alot as I was sick for 8 days and need to catch up but feeling better Pain/Management: WNL Scheduled Follow-Up with Provi: No (05/25 No, but I will-just got my personal phone and will call Dr durant this week) TCM Discharge Criteria Medication Knowledge: 05/25 Went over BS and use of insulin-states he went and got a different glucometer and has been taking BS 4x qd "they have been ok so far. 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 He has no phone number at this time. No insurance--Someone brought him some forms to fill out for hospital assistance with finances. Suggested the [facility] until he can establish a PCP and follow up care. He states his insurance at the [facility] will take effect on May 20. He did agree to pone calls once he got a luna, will be at work most of all days and wouldn't consent to home visit. 3/ Unable to contact 3/ Goes straight to [facility], which is not set up 05/24 unable to contact-phone goes to - not setup 05/25 TT to Jose R he stated he had gone to [facility] but dt the fact that he will be making to much money he could not be seen. He is going to call Dr Cooper office this week and try and get in. "I have been very busy with moving, getting a phone and trying to catch up at work." Enc him to take some rest time or he will get sick again. His immune system is low and he needs to try and stay away from ill people. Jose R states he will try to take care of himself as he does not to return to hospital" "Everything was good, I just don't to be in hospital again" stated he would get a script from PCP to go to the diabetic out patient clinic ad I know I have to do all I can to beat this. Denies any drinking. 06/02. Called on day he said was his day off. Voicemail is not set up yet and no answer EVER ROMO Jun 02, 2017 12:26
--- NOTE | 2017-06-09 13:14 | Transitional Care Management ---
Assessment Visit Type: Telephone Visit Spoke with: Jose R Cardiac: WNL Respiratory: WNL GI: Nutrition: WNL Except GI Comment: 05/25 working very hard on obtaining and staying on a diabetic diet. 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 Was less than 100 once; he was sweaty and shaky andknew to eat something that brought it up. He was "hi" once but realized immediately he had eaten a meal and forgotten his humalog ac. He is cognizant of avoiding fatty foods due to pancreatitis and is not drinking etoh. Mobility/Falls: WNL Integumentary: WNL Integumentary Comment: 05/25 a few bruises from IV's but improving. 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 Socialization Comment: 05/25 working alot as I was sick for 8 days and need to catch up but feeling better Pain/Management: WNL Scheduled Follow-Up with James: No (06/09 No, will call today before he runs out of insulin) Community Resources/C: 06/09 has number for financial assist at [facility]. wants to complete paperwork as he did not have insurance when he was admitted Primary Care Provider Visits: No Questions for Future PCP Visit: 06/09 needs appt to see and establish care with Dr Harper Needs insulin refills and review BS readings and adjust insulin if needed Wants DM clinic referral Following Discharge Instructio: Yes TCM Discharge Criteria Medication Knowledge: 05/25 Went over BS and use of insulin-states he went and got a different glucometer and has been taking BS 4x qd "they have been ok so far. 06/09 review BS numbers and insulin use ; rn long term care and short term as well as running out with about a 30 day supply at [place]. 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 He has no phone number at this time. No insurance--Someone brought him some forms to fill out for hospital assistance with finances. Suggested the DTC until he can establish a PCP and follow up care. He states his insurance at the [facility] will take effect on May 20. He did agree to pone calls once he got a luna, will be at work most of all days and wouldn't consent to home visit. 05/21 Unable to contact 05/22 Goes straight to [employer], which is not set up 05/24 unable to contact-phone goes to - not setup 05/25 TT to Jose R he stated he had gone to [facility] but dt the fact that he will be making to much money he could not be seen. He is going to call Dr Harper office this week and try and get in. "I have been very busy with moving, getting a phone and trying to catch up at work." Enc him to take some rest time or he will get sick again. His immune system is low and he needs to try and stay away from ill people. Jose R states he will try to take care of himself as he does not to return to hospital" "Everything was good, I just don't to be in hospital again" stated he would get a script from PCP to go to the diabetic out patient clinic ad I know I have to do all I can to beat this. Denies any drinking. 06/02. Called on day he said was his day off. Voicemail is not set up yet and no answer 06/09 review BS and s/s low bs/hi bs and tx. he states he will call MD for appt to get RX for insulin before it runs out. Denies any abd pain N/V with his pancreatitis hx; is avoiding fat and etoh. Would like next call in 2 weeks. Copies to: ELIANE HARPER MD, GENEVA E Jun 09, 2017 13:14
--- NOTE | 2017-06-23 12:37 | Transitional Care Management ---
Assessment Cardiac: WNL Respiratory: WNL GI: Nutrition: WNL Except GI Comment: 05/25 working very hard on obtaining and staying on a diabetic diet. 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 Was less than 100 once; he was sweaty and shaky andknew to eat something that brought it up. He was "hi" once but realized immediately he had eaten a meal and forgotten his humalog ac. He is cognizant of avoiding fatty foods due to pancreatitis and is not drinking etoh. Mobility/Falls: WNL Integumentary: WNL Integumentary Comment: 05/25 a few bruises from IV's but improving. 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 Socialization Comment: 05/25 working alot as I was sick for 8 days and need to catch up but feeling better Pain/Management: WNL Scheduled Follow-Up with Provi: No (06/09 No, will call today before he runs out of insulin) Community Resources/HHC: 06/09 has number for financial assist at [facility]. wants to complete paperwork as he did not have insurance when he was admitted Primary Care Provider Visits: No Questions for Future PCP Visit: 06/09 needs appt to see and establish care with Dr Cooper Needs insulin refills and review BS readings and adjust insulin if needed Wants DM clinic referral Following Discharge Instructio: Yes TCM Discharge Criteria Medication Knowledge: 05/25 Went over BS and use of insulin-states he went and got a different glucometer and has been taking BS 4x qd "they have been ok so far. 06/09 review BS numbers and insulin use ; intermediate and short term as well as running out [place] about [place] supply at [place]. 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 He has no phone number at this time. No insurance--Someone brought him some forms to fill out for hospital assistance with finances. Suggested the DTC until he can establish a PCP and follow up care. He states his insurance at the [facility] will take effect on May 20. He did agree to pone calls once he got a luna, will be at work most of all days and wouldn't consent to home visit. 05/21 Unable to contact 05/22 Goes straight to [employer], which is not set up 05/24 unable to contact-phone goes to - not setup 05/25 TT to Jose R he stated he had gone to DTC but dt the fact that he will be making to much money he could not be seen. He is going to call Dr Cooper office this week and try and get in. "I have been very busy with moving, getting a phone and trying to catch up at work." Enc him to take some rest time or he will get sick again. His immune system is low and he needs to try and stay away from ill people. Jose R states he will try to take care of himself as he does not to return to hospital" "Everything was good, I just don't to be in hospital again" stated he would get a script from PCP to go to the diabetic out patient clinic ad I know I have to do all I can to beat this. Denies any drinking. 06/02. Called on day he said was his day off. [employer] is not set up yet and no answer 06/09 review BS and s/s low bs/hi bs and tx. he states he will call MD for appt to get RX for insulin before it runs out. Denies any abd pain N/V with his pancreatitis hx; is avoiding fat and etoh. Would like next call in 2 weeks. 06/23 left message LANCE DONIS Jun 23, 2017 12:37
--- NOTE | 2017-07-01 15:08 | Transitional Care Management ---
Assessment Cardiac: WNL Respiratory: WNL GI: Nutrition: WNL Except GI Comment: 05/25 working very hard on obtaining and staying on a diabetic diet. 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 Was less than 100 once; he was sweaty and shaky andknew to eat something that brought it up. He was "hi" once but realized immediately he had eaten a meal and forgotten his humalog ac. He is cognizant of avoiding fatty foods due to pancreatitis and is not drinking etoh. Mobility/Falls: WNL Integumentary: WNL Integumentary Comment: 05/25 a few bruises from IV's but improving. 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 Socialization Comment: 05/25 working alot as I was sick for 8 days and need to catch up but feeling better Pain/Management: WNL Scheduled Follow-Up with Provi: No (06/09 No, will call today before he runs out of insulin) Community Resources/HHC: 06/09 has number for financial assist at [facility]. wants to complete paperwork as he did not have insurance when he was admitted Primary Care Provider Visits: No Questions for Future PCP Visit: 06/09 needs appt to see and establish care with Dr Cooper Needs insulin refills and review BS readings and adjust insulin if needed Wants DM clinic referral Following Discharge Instructio: Yes TCM Discharge Criteria Medication Knowledge: 05/25 Went over BS and use of insulin-states he went and got a different glucometer and has been taking BS 4x qd "they have been ok so far. 06/09 review BS numbers and insulin use ; residential and short term as well as running out with about a 30 day supply at [place]. 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. He has no phone number at this time. No insurance--Someone brought him some forms to fill out for hospital assistance with finances. Suggested the DTC until he can establish a PCP and follow up care. He states his insurance at the [facility] will take effect on May 20. He did agree to pone calls once he got a luna, will be at work most of all days and wouldn't consent to home visit. 05/21 Unable to contact 05/22 Goes straight to [employer], which is not set up 05/24 unable to contact-phone goes to - not setup 05/25 TT to Jose R he stated he had gone to DTC but dt the fact that he will be making to much money he could not be seen. He is going to call Dr Cooper office this week and try and get in. "I have been very busy with moving, getting a phone and trying to catch up at work." Enc him to take some rest time or he will get sick again. His immune system is low and he needs to try and stay away from ill people. Jose R states he will try to take care of himself as he does not to return to hospital" "Everything was good, I just don't to be in hospital again" stated he would get a script from PCP to go to the diabetic out patient clinic ad I know I have to do all I can to beat this. Denies any drinking. 06/02. Called on day he said was his day off. [employer] is not set up yet and no answer 06/09 review BS and s/s low bs/hi bs and tx. he states he will call MD for appt to get RX for insulin before it runs out. Denies any abd pain N/V with his pancreatitis hx; is avoiding fat and etoh. Would like next call in 2 weeks. / left message 06/30 and unable to contact-left messages both days GIRISH HORN Jul 01, 2017 15:08
--- NOTE | 2017-07-07 13:40 | Transitional Care Management ---
Assessment Cardiac: WNL Respiratory: WNL GI: Nutrition: WNL Except GI Comment: 05/25 working very hard on obtaining and staying on a diabetic diet. 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 Was less than 100 once; he was sweaty and shaky andknew to eat something that brought it up. He was "hi" once but realized immediately he had eaten a meal and forgotten his humalog ac. He is cognizant of avoiding fatty foods due to pancreatitis and is not drinking etoh. Mobility/Falls: WNL Integumentary: WNL Integumentary Comment: 05/25 a few bruises from IV's but improving. 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 Socialization Comment: 05/25 working alot as I was sick for 8 days and need to catch up but feeling better Pain/Management: WNL Scheduled Follow-Up with Provi: No (06/09 No, will call today before he runs out of insulin) Community Resources/HHC: 06/09 has number for financial assist at [facility]. wants to complete paperwork as he did not have insurance when he was admitted Primary Care Provider Visits: No Questions for Future PCP Visit: 06/09 needs appt to see and establish care with Dr Cooper Needs insulin refills and review BS readings and adjust insulin if needed Wants DM clinic referral Following Discharge Instructio: Yes TCM Discharge Criteria Medication Knowledge: 05/25 Went over BS and use of insulin-states he went and got a different glucometer and has been taking BS 4x qd "they have been ok so far. 06/09 review BS numbers and insulin use ; alf and short term as well as running out with about a 30 [place] supply at [place]. 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 He has no phone number at this time. No insurance--Someone brought him some forms to fill out for hospital assistance with finances. Suggested the DTC until he can establish a PCP and follow up care. He states his insurance at the [facility] will take effect on May 20. He did agree to pone calls once he got a luna, will be at work most of all days and wouldn't consent to home visit. 05/21 Unable to contact 05/22 Goes straight to [employer], which is not set up 05/24 unable to contact-phone goes to - not setup 05/25 TT to Jose R he stated he had gone to DTC but dt the fact that he will be making to much money he could not be seen. He is going to call Dr Cooper office this week and try and get in. "I have been very busy with moving, getting a phone and trying to catch up at work." Enc him to take some rest time or he will get sick again. His immune system is low and he needs to try and stay away from ill people. Jose R states he will try to take care of himself as he does not to return to hospital" "Everything was good, I just don't to be in hospital again" stated he would get a script from PCP to go to the diabetic out patient clinic ad I know I have to do all I can to beat this. Denies any drinking. 06/02. Called on day he said was his day off. [employer] is not set up yet and no answer 06/09 review BS and s/s low bs/hi bs and tx. he states he will call MD for appt to get RX for insulin before it runs out. Denies any abd pain N/V with his pancreatitis hx; is avoiding fat and etoh. Would like next call in 2 weeks. 06/23 left message 06/30 and unable to contact-left messages both days 07/07 Still unable to contact or receive return calls. Will DC from program. GIRISH HORN Jul 07, 2017 13:40
== END 2017-07-12 06:49 | disposition home or self-care (01) ==
LOC: TCM 13:54
PROVIDERS: ATTEND Nurse Practitioner
DX: Z02.9 Encounter for administrative examinations, unspecified (principal)